=== PATIENT | female | born 2000 | race Caucasian/White ===

== ENCOUNTER 2023-09-23 13:54 | Emergency (ER) | payer SELFPAY ==
[2023-09-23 14:15] VITALS: BP 136/86; PULSE 98; RESP 16; TEMP 36.7; O2SAT 100; BMI 31.1
[2023-09-23 14:54] LABS: Basophils % 0.6 %; Eosinophils % 0.6 %; Hematocrit 37.1 % (36-47); Lymphocytes # 1.7 10^3/uL (0.8-4.8); Lymphocytes % 31.7 %; Mean Corpuscular HGB Conc 29.6 g/dL (30-55); Mean Corpuscular Volume 77.6 fl (85-98); Mean Platelet Volume 10.1 fL (7.4-10.4); Monocytes # 0.4 10^3/uL (0.2-0.9); Monocytes % 7.5 %; Neutrophils # 3.14 10^3/uL (1.8-7.7); Neutrophils % 59.2 %; Nucleated Red Blood Cells % 0 %; Platelet Count 319 10^3/cmm (157-399); Red Blood Count 4.78 10^6/uL (3.85-5.65)
[2023-09-23 15:13] LABS: HCG Quantitative 25.82 mIU/mL
--- NOTE | 2023-09-23 15:19 | ED_ITS ---
HPI - 2 General: Chief complaint: Vaginal Bleeding Stated complaint: vaginal bleeding / 6wks preg Time Seen by Provider: 09/23/23 15:18 Source: patient Mode of arrival: ambulatory History of Present Illness: 23-year-old G1, P0 female at approximate ly 6 weeks gestation based off her LMP and a home test. She comes in with painless vaginal bleeding. Began this morning. Some dark red blood. Denies abdominal pain or cramping no previous pregnancies no previous abdominal surgeries Complaint: vaginal bleeding Onset (ago): hour(s) Associated symptoms: Deny abdominal pain or dysuria Review of Systems 2 Const: Denies: fever(s) or chills Card: Denies: chest pain Resp: Denies: dyspnea GI: Denies: abdominal pain : Denies: dysuria, urinary frequency or urinary urgency Musc: Denies: neck pain or back pain Skin/Breast: Denies: rash Physical Exam 2 Const: COMMON NORMALS: no acute distress GENERAL APPEARANCE: cooperative and comfortable ORIENTATION/CONSCIOUSNESS: Yes awake, Yes oriented to person, Yes oriented to place and Yes oriented to time HENMT: COMMON NORMALS: normocephalic, atraumatic and hearing grossly normal bilaterally HEAD & SCALP: normocephalic and atraumatic Resp: COMMON NORMALS: normal respiratory effort, No retractions, No use of accessory muscles and clear to auscultation bilaterally AUSCULTATION: clear to auscultation bilaterally Cardio: COMMON NORMALS: regular rate, regular rhythm and No murmurs present (Cardio) RATE: regular rate RHYTHM: regular rhythm GI: COMMON NORMALS: Soft to palpation and No hepatosplenomegaly present A USCULTATION: Yes normoactive bowel sounds PALPATION: Yes Soft to palpation, No Tenderness to palpation present (GI), No Guarding due to palpation present (GI) and Yes No hepatosplenomegaly present Extremity: COMMON NORMALS: normal to inspection, capillary refill normal, no clubbing, cyanosis or edema, no calf tenderness and no pedal edema Neuro: SENSORIUM/ORIENTATION: Yes oriented to person, Yes oriented to place and Yes oriented to time Skin: COMMON NORMALS: no rashes or lesions noted GENERAL SKIN EXAM: no rashes or lesions noted Course 2 Vital Signs: Vital signs: Vital Signs Temperature 98.1 F 09/23/23 14:15 Pulse Rate 98 09/23/23 14:15 Respiratory Rate 16 09/23/23 14:15 Blood Pressure 126/74 09/23/23 15:55 Pulse Oximetry 100 09/23/23 14:15 Oxygen Delivery Me thod Room Air 09/23/23 14:15 MDM - OB/Uterine Contractions Medical Decision Making Incomplete AB. Beta-hCG is little lower at 25 given her reported estimated gestational age she most likely will be miscarrying. Recommend that she get a repeat beta-hCG and if she at least 72 hours. She is a positive. She is not having any pelvic pain or discharge. Discharge home. Unfortunately she does not have a primary care doctor encouraged her to follow-up at one of the walk-in clinics. Lab Data I reviewed the patient's lab results. 09/23/23 14:29 09/23/23 14:29 Laboratory Results WBC 5.30 10^3/uL (3.29-11.43) 09/23/23 14:29 RBC 4.78 10^6/uL (3.85-5.65) 09/23/23 14:29 Hgb 11.00 g/dL (11.27-16.99) L 09/23/23 14:29 Hct 37.1 % (36-47) 09/23/23 14:29 MCV 77.6 fl (85-98) L 09/23/23 14:29 MCH 23.0 pg (27-33) L 09/23/23 14:29 MCHC 29.6 g/dL (30-55) L 09/23/23 14:29 RDW 17.0 % (12.1-15.1) H 09/23/23 14:29 Plt Count 319 10^3/cmm (157-399) 09/23/23 14:29 MPV 10.1 fL (7.4-10.4) 09/23/23 14:29 Neut % (Auto) 59.2 % 09/23/23 14:29 Lymph % (Auto) 31.7 % 09/23/23 14:29 [place] % (Auto) 7.5 % 09/23/23 14:29 Eos % (Auto) 0.6 % 09/23/23 14:29 Baso % (Auto) 0.6 % 09/23/23 14:29 Neut # (Auto) 3.14 10^3/uL (1.8-7.7) 09/23/23 14:29 Lymph # (Auto) 1.7 10^3/uL (0.8-4.8) 09/23/23 14: [place] # (Auto) 0.4 10^3/uL (0.2-0.9) 09/23/23 14:29 Eos # (Auto) 0.0 10^3/uL (0.0-0.8) 09/23/23 14:29 Baso # (Auto) 0.0 10^3/uL (0.0-0.1) 09/23/23 14:29 Nucleated RBC % (auto) 0 % 09/23/23 14: Nucleated RBCs # 0.0 /100WBC 09/23/23 14:29 Sodium 141 mmol/L (136-145) 09/23/23 14:29 Potassium 4.2 mmol/L (3.5-5.1) 09/23/23 14:29 Chloride 106 mmol/L (98-107) 09/23/23 14:29 Carbon Dioxide 23 mmol/L (22-29) 09/23/23 14:29 Anion Gap 16.2 (5-19) 09/23/23 14:29 BUN 11 mg/dL (6-20) 09/23/23 14:29 Creatinine 0.6 mg/dL (0.5-0.9) 09/23/23 14:29 GFR Calculation 123.9 mL/min (90-130) 09/23/23 14:29 Glucose 96 mg/dL (65-115) 09/23/23 14:29 Calculated Osmolality 291 mOsm/kg (285-295) 09/23/23 14:29 Calcium 8.9 mg/dL (8.5-10.5) 09/23/23 14:29 Total Bilirubin 0.2 mg/dL (0.15-1.2) 09/23/23 14:29 AST 18 U/L (0-32) 09/23/23 14:29 ALT 15 U/L (0-33) 09/23/23 14:29 Alkaline Phosphatase 72 U/L (35-105) 09/23/23 14:29 Total Protein 7.8 g/dL (6.6-8.7) 06/29/24 14:29 Albumin 4.6 g/dL (3.5-5.2) 09/23/23 14:29 Globulin 3.2 g/dL (1.3-4.6) 09/23/23 14:29 Ser , Semi-Qnt 25.82 mIU/mL 09/23/23 14:29 Blood Type A Positive 09/23/23 14:29 Rho(D) Type Rh positive 09/23/23 14:29 No radiology studies performed this visit Discharge Plan Discharge Patient Disposition: Home Clinical Impression: Incomplete miscarriage Condition: Stable Discharge Orders: Discharge ED (Routine); Ordered 09/23/23 Ordered By: Bruce Varner Discharge Diet: Usual diet Discharge Activity: Increase activity as tolerated Patient Instructions: Miscarriage (ED), Opioid Safety, Pain Management Activity Restrictions/Additional Instructions: Thank you for choosing [facility] for your healthcare needs today. It is very important that you follow up as instructed or that you return to the Emergency Department should you have concerns or if your condition changes or worsens in any way. You were seen today for vaginal bleeding. Your beta-hCG (hormone of ) is quite low. This most likely indicates that you are miscarrying. You should follow-up with your primary care doctor within the next 4 to 5 days for a repeat serum beta-hCG. Coding Level of Care Code ED Doughnut Glazier for Ketan Abraham
[2023-09-23 15:25] LABS: Alanine Aminotransferase 15 U/L (0-33); Albumin Level 4.6 g/dL (3.5-5.2); Alkaline Phosphatase 72 U/L (35-105); Anion Gap 16.2 (5-19); Aspartate Amino Transferase 18 U/L (0-32); Blood Urea Nitrogen 11 mg/dL (6-20); Calcium 8.9 mg/dL (8.5-10.5); Carbon Dioxide 23 mmol/L (22-29); Chloride 106 mmol/L (98-107); Creatinine Clr Calc Pharmacy 145.8895; Globulin 3.2 g/dL (1.3-4.6); Glomerular Filtration Rate 123.9 mL/min (90-130); Glucose 96 mg/dL (65-115); Osmolality Calculated 291 mOsm/kg (285-295); Potassium 4.2 mmol/L (3.5-5.1); Sodium 141 mmol/L (136-145); Total Bilirubin 0.2 mg/dL (0.15-1.2); Total Protein 7.8 g/dL (6.6-8.7)
[2023-09-23 15:55] VITALS: BP 126/74
== END 2023-09-23 15:57 | disposition home or self-care (01) ==
PROVIDERS: Nurse Practitioner Family; Emergency Provider Family Medicine
DX: O03.4 Incomplete spontaneous abortion without complication (principal)
CPT/HCPCS: 36415; 80053; 84702; 85025; 86900; 99283